=== PATIENT | male | born 1960 | race Two or more races ===

== ENCOUNTER 2023-11-17 19:29 | Emergency (ER) | payer BC, OTHER ==
[~2023-11-17] VITALS: Ht 180.3 cm; Wt 77.3 kg
[2023-11-17 21:53] VITALS: BP 149/88; PULSE 90; RESP 16; TEMP 98.2; O2SAT 97
[2023-11-17] MEDS ORDERED: CEPH500C PO (22:49)
[2023-11-17] MEDS ORDERED: IBUP-1456 PO (22:49)
== END 2023-11-17 22:48 | disposition home or self-care (01) ==
LOC: ER 19:29
DX: S51.811A Laceration without foreign body of right forearm, initial encounter (principal); X58.XXXA Exposure to other specified factors, initial encounter; Y93.89 Activity, other specified; Y92.89 Other specified places as the place of occurrence of the external cause; Y99.8 Other external cause status
CPT/HCPCS: 12002